=== PATIENT | female | born 1955 | race Caucasian/White ===

== ENCOUNTER 2018-02-05 02:59 | Emergency (ER) | payer OTHER ==
[~2018-02-05] VITALS: Ht 167.6 cm; Wt 68.7 kg
[2018-02-05 03:01] VITALS: BP 130/85
[2018-02-05] MEDS ORDERED: ATOR10TA PO (03:58)
== END 2018-02-05 04:32 | disposition home or self-care (01) ==
LOC: ED 04:05
DX: K02.9 Dental caries, unspecified (principal); I10 Essential (primary) hypertension
CPT/HCPCS: 99283

== ENCOUNTER 2018-05-20 08:07 | Emergency (ER) | payer OTHER ==
[~2018-05-20] VITALS: Ht 167.6 cm; Wt 68.6 kg
[~2018-05-20 08:07] MED LIST: ATOR10TA PO
[2018-05-20 08:19] VITALS: BP 129/80
[2018-05-20] MEDS ORDERED: PROPARACAINE OPHTH 0.5%, 15ML ONE (08:28)
== END 2018-05-20 09:42 | disposition home or self-care (01) ==
LOC: ED 09:38
DX: S05.02XA Injury of conjunctiva and corneal abrasion without foreign body, left eye, initial encounter (principal); F17.200 Nicotine dependence, unspecified, uncomplicated; X58.XXXA Exposure to other specified factors, initial encounter; Y93.89 Activity, other specified; Y92.89 Other specified places as the place of occurrence of the external cause; Y99.8 Other external cause status
CPT/HCPCS: 99283